=== PATIENT | female | born 1995 | race American Indian/Alaskan Native ===

== ENCOUNTER 2021-12-08 18:23 | Inpatient (IN) | payer SELFPAY ==
[2021-12-08] MEDS ORDERED: ETOMIDATE 20 MG/10 ML INJ IV ONE (19:44)
[2021-12-08] MEDS ORDERED: ROCURONIUM 50 MG/5 ML INJ IV ONE (19:45)
[2021-12-08] MEDS ORDERED: levETIRAcetam 1000 MG/NS 0.75% 1,000 MG/100 ML BAG IV ONE ×2 (19:57)
[2021-12-08] MEDS ORDERED: SODIUM CHLORIDE 0.9% 500 ML 500 ML IV ONE (19:57)
[2021-12-08] MEDS ORDERED: LORazepam 2 MG/ML VIAL IM PRN (19:57)
--- NOTE | 2021-12-08 19:58 | Emergency Department Report ---
ED General Adult HPI - General Chief complaint: Seizure Stated complaint: SEIZURE Time Seen by Provider: 12/08/21 19:56 Source: EMS (Verbal report received from emergency medical services. EMS documentation not available at time of chart dictation ), RN notes reviewed Mode of arrival: Stretcher Limitations: Altered Mental Status, Physical Limitation - History of Present Illness Initial comments: The patient was evaluated in the emergency department for symptoms described in the history of present illness. He/she was evaluated in the context of the global COVID-19 pandemic, which necessitated consideration that the patient might be at risk for infection with the virus that causes COVID-19. Institutional protocols and algorithms that pertain to the evaluation of patients at risk for COVID-19 are in a state of rapid change based on information released by regulatory bodies including the CDC and federal and state organizations. These policies and algorithms were followed during the patient's care in the emergency department. Please note that these policies, procedures and recommendations changed on a rapid basis. This is a 26-year-old female who is not known to myself previously, who was brought to the hospital by emergency medical services with an EMS articulated complaint of seizures and/or convulsions, and change in mental status. Her last known well time is not explicitly known. EMS reports the patient was flying back from out of the country, and reportedly had a few convulsive events. Her last known well time is not explicitly known. EMS reports that 911 was activated. EMS reports that upon their arrival, the patient had a normal Accu- Chek. They also reports that the patient had convulsions with them, which was terminated with benzodiazepines. They report the patient has been breathing spontaneously, and essentially unresponsive. In the emergency room, the patient is breathing spontaneously. She has a gag reflex. Supplemental oxygen is applied. The patient wakes up, and asks where she is. She then falls back to sleep. She is not able to describe the qualitative nature of her symptoms, exacerbating factors relieving factors or aggravating factors. No additional history is available at this time. It is not known what medical history the patient has, what medications he takes, or what her allergies are. She is not accompanied by friends or family at this time. The patient did indicate that she lives here in [place] -: unknown - Related Data Allergies Allergy/AdvReac Type Severity Reaction Status Date / Time Unable to Assess Allergy Unverified 12/08/21 19:51 ED Review of Systems ROS: Stated complaint: SEIZURE Other details as noted in HPI Comment: Unobtainable due to pts medical conditions ED Past Medical Hx - Social History Smoking Status: Unknown if ever smoked Substance Use Type: None ED Physical Exam - General Limitations: Altered Mental Status General appearance: lethargic (Patient is listless but arousable) - Head Head exam: Present: atraumatic, normocephalic - Eye Eye exam: Present: normal appearance, EOMI - ENT ENT exam: Present: normal exam, normal orophraynx, mucous membranes moist, normal external ear exam - Neck Neck exam: Present: normal inspection, full ROM. Absent: tenderness, men ingismus - Respiratory Respiratory exam: Present: rhonchi. Absent: respiratory distress, wheezes, rales, stridor - Cardiovascular Cardiovascular Exam: Present: regular rate, normal rhythm, normal heart sounds. Absent: bradycardia, tachycardia, irregular rhythm, systolic murmur, diastolic murmur, rubs, gallop - GI/Abdominal GI/Abdominal exam: Present: soft. Absent: distended, tenderness, guarding, rebound, rigid, pulsatile mass - Extremities Exam Extremities exam: Present: normal inspection, full ROM, other (2+ pulses noted in the bilateral upper and lower extremities. There is no palpable cord. negative Homans sign. Muscular compartments are soft. The pelvis is stable.). Absent: pedal edema, calf tenderness - Back Exam Back exam: Present: normal inspection, full ROM. Absent: tenderness, CVA tenderness (R), CVA tenderness (L), paraspinal tenderness, vertebral tenderness - Neurological Exam Neurological exam: Present: altered (Detailed neurologic examination not possible secondary to postictal state, benzodiazepines and altered mental status), other (There is no facial droop. Moving 4 extremities. Asking where she is.) - Psychiatric Psychiatric exam: Present: flat affect - Skin Skin exam: Present: warm, dry, intact, normal color. Absent: rash ED Course Vital Signs 12/08/21 19:32 Temperature 97 F L Pulse Rate 92 H Respiratory 18 Rate Blood Pressure 114/77 O2 Sat by Pulse 100 Oximetry - Reevaluation(s) Reevaluation #1: 12/08/21 20:41 Differential diagnosis, including but not limited to: Seizure, pseudoseizure, overdose, postictal state, electrolyte derangement, intracranial injury, pneumonia, UTI Assessment and plan 26-year-old female with report of multiple seizures. She is not seizing at this time. She is confused and asking where she is. She is breathing spontaneously. She is moving 4 extremities. Given voodoo of mental status, this does not meet definition criteria of status epilepticus. Place patient on monitor, supplemental oxygen, aspiration precautions, head of bed elevation, obtain noncontrast CT scan of the brain, and appropriate laboratory studies as well as EKG. Loaded with 2 g of Keppra empirically. Reassess after initial data points. Next 12/08/21 20:42 12/08/21 22:22 Patient is reassessed. No convulsive activity noted. She is breathing spontaneously. Laboratory studies nonactionable. Urinalysis pending. X-ray of the chest reviewed and appreciated by myself. Concerning for aspiration pneumonitis. Ceftriaxone and azithromycin ordered. UA and drug screen ordered. Admit patient to the hospitalist service for supportive care. Hospital physician, Dr. Morales to admit to [facility] ED Medical Decision Making - Lab Data Result diagrams: 12/08/21 21:06 12/08/21 21:06 Vital Signs 12/08/21 19:32 Temperature 97 F L Pulse Rate 92 H Respiratory 18 Rate Blood Pressure 114/77 O2 Sat by Pulse 100 Oximetry Lab Results 12/08/21 12/08/21 12/08/21 Range/Units 21:06 21:06 21:06 WBC 8.9 (4.5-11.0) K/mm3 RBC 4.21 (3.65-5.03) M/mm3 Hgb 13.3 (10.1-14.3) gm/dl Hct 38.4 (30.3-42.9) % MCV 91 (79-97) fl MCH 32 (28-32) pg MCHC 35 H (30-34) % RDW 13.3 (13.2-15.2) % Plt Count 382 (140-440) K/mm3 Lymph % (Auto) 22.1 (13.4-35.0) % [place] % (Auto) 3.5 (0.0-7.3) % Eos % (Auto) 0.3 (0.0-4.3) % Baso % (Auto) 0.6 (0.0-1.8) % Lymph # (Auto) 2.0 (1.2-5.4) K/mm3 [place] # (Auto) 0.3 (0.0-0.8) K/mm3 Eos # (Auto) 0.0 (0.0-0.4) K/mm3 Baso # (Auto) 0.1 (0.0-0.1) K/mm3 Seg Neutrophils % 73.5 H (40.0-70.0) % Seg Neutrophils # 6.5 (1.8-7.7) K/mm3 Sodium 138 (137-145) mmol/L Potassium 4.9 (3.6-5.0) mmol/L Chloride 105.7 (98-107) mmol/L Carbon Dioxide 21 L (22-30) mmol/L Anion Gap 16 mmol/L BUN 4 L (7-17) mg/dL Creatinine 0.7 (0.6-1.2) mg/dL Estimated GFR > 60 ml/min BUN/Creatinine Ratio 6 % Glucose 66 (65-100) mg/dL Calcium 9.3 (8.4-10.2) mg/dL Total Bilirubin 0.20 (0.1-1.2) mg/dL AST 23 (5-40) units/L ALT 7 (7-56) units/L Alkaline Phosphatase 82 (35-129) units/L Total Creatine Kinase 97 (30-135) units/L Total Protein 7.4 (6.3-8.2) g/dL Albumin 4.3 (3.9-5) g/dL Albumin/Globulin Ratio 1.4 % HCG, Quant < 2 (0-4) mIU/mL Salicylates (2.8-20.0) mg/dL Acetaminophen (10.0-30.0) ug/mL Phenytoin (10.0-20.0) ug/mL Valproic Acid (50-100) ug/mL [place] (0.0-1.2) mmol/L Plasma/Serum Alcohol (0-0.07) % 12/08/21 12/08/21 12/08/21 Range/Units 21:06 21:06 21:06 WBC (4.5-11.0) K/mm3 RBC (3.65-5.03) M/mm3 Hgb (10.1-14.3) gm/dl Hct (30.3-42.9) % MCV (79-97) fl MCH (28-32) pg MCHC (30-34) % RDW (13.2-15.2) % Plt Count (140-440) K/mm3 Lymph % (Auto) (13.4-35.0) % [place] % (Auto) (0.0-7.3) % Eos % (Auto) (0.0-4.3) % Baso % (Auto) (0.0-1.8) % Lymph # (Auto) (1.2-5.4) K/mm3 [place] # (Auto) (0.0-0.8) K/mm3 Eos # (Auto) (0.0-0.4) K/mm3 Baso # (Auto) (0.0-0.1) K/mm3 Seg Neutrophils % (40.0-70.0) % Seg Neutrophils # (1.8-7.7) K/mm3 Sodium (137-145) mmol/L Potassium (3.6-5.0) mmol/L Chloride (98-107) mmol/L Carbon Dioxide (22-30) mmol/L Anion Gap mmol/L BUN (7-17) mg/dL Creatinine (0.6-1.2) mg/dL Estimated GFR ml/min BUN/Creatinine Ratio % Glucose (65-100) mg/dL Calcium (8.4-10.2) mg/dL Total Bilirubin (0.1-1.2) mg/dL AST (5-40) units/L ALT (7-56) units/L Alkaline Phosphatase (35-129) units/L Total Creatine Kinase (30-135) units/L Total Protein (6.3-8.2) g/dL Albumin (3.9-5) g/dL Albumin/Globulin Ratio % HCG, Quant (0-4) mIU/mL Salicylates < 0.3 L (2.8-20.0) mg/dL Acetaminophen 5.0 L (10.0-30.0) ug/mL Phenytoin 0.8 L (10.0-20.0) ug/mL Valproic Acid < 2.8 L (50-100) ug/mL [place] 0.1 (0.0-1.2) mmol/L Plasma/Serum Alcohol < 0.01 (0-0.07) % - EKG Data -: EKG Interpreted by Hi EKG shows normal: sinus rhythm Rate: normal - EKG Data 12/08/21 20:45 There is no prior EKG available for comparison. The EKG is interpreted at 20: 42 Sinus rhythm, rate 93 bpm. Normal axis, normal P wave axis, left ventricular hypertrophy, QTC 4 7 ms, intervals within normal limits. This is not a STEMI. - Radiology Data Radiology results: pending, report reviewed, image reviewed CT head/brain wo con INDICATION: Seizure. TECHNIQUE: Routine CT head. All CT scans at this location are performed using CT dose reduction for ALARA by means of automated exposure control. COMPARISON: None. FINDINGS: Intracranial: Image quality is significantly degraded by streak artifact. There is hypoattenuation seen in the left occipital lobe which is thought to most likely be artifactual. Sifuentes-white matter differentiation is maintained. No intracranial hemorrhage. No extra axial collection. No hydrocephalus. No herniation. Sinuses: Paranasal sinuses and mastoid air cells are essentially clear. Orbits: Globes are intact. Calvarium: No acute fracture. IMPRESSION: 1. No definite abnormality. Image quality is degraded by artifact. Signer Name: Gregorio Spear MD Signed: 12/08/2021 7:50 PM Workstation Name: [id number] [facility] [address] [place] [address] XRay Report Signed Patient: JOSE BATISTA MR#: [id number] : 1995 Acct:[id number] Age/Sex: 26 / F ADM Date: 12/08/21 Loc: ED Attending Dr: Ordering Physician: MARIO CAMPOVERDE MD Date of Service: 12/08/21 Procedure(s): XR chest 1V ap Accession Number(s): [id number] cc: MARIO CAMPOVERDE MD Fluoro Time In Minutes: CHEST 1 VIEW 12/08/2021 9:23 PM INDICATION / CLINICAL INFORMATION: Multiple convulsions and hypoxia. COMPARISON: None available. FINDINGS: SUPPORT DEVICES: None. HEART / MEDIASTINUM: No significant abnormality. LUNGS / PLEURA: There are hazy airspace opacities in bilateral lung bases. No pneumothorax. ADDITIONAL FINDINGS: No significant additional findings. IMPRESSION: 1. Hazy airspace opacities in bilateral lung bases suggesting infectious process versus aspiration Signer Name: Chato Mckay DO Signed: 12/08/2021 10:27 PM Workstation Name: [id number] Transcribed By: MARCO A Dictated By: CHATO MCKAY DO Electronically Authenticated By: CHATO MCKAY DO Signed Date/Time: 12/08/212226 DD/ 26 Critical care attestation.: If time is entered above; I have spent that time in minutes in the direct care of this critically ill patient, excluding procedure time. ED Disposition Clinical Impression: Convulsions, Acute encephalopathy Disposition: ADMITTED INPATIENT Is pt being admited?: Yes Does the pt Need Aspirin: No Condition: Fair
--- NOTE | 2021-12-08 20:54 | Cat Scan Report ---
CT head/brain wo con INDICATION: Seizure. TECHNIQUE: Routine CT head. All CT scans at this location are performed using CT dose reduction for A MARISABEL by means of automated exposure control. COMPARISON: None. FINDINGS: Intracranial: Image quality is significantly degraded by streak artifact. There is hypoattenuation se en in the left occipital lobe which is thought to most likely be artifactual. Sifuentes-white matter diffe rentiation is maintained. No intracranial hemorrhage. No extra axial collection. No hydrocephalus. No herniation. Sinuses: Paranasal sinuses and mastoid air cells are essentially clear. Orbits: Globes are intact. Calvarium: No acute fracture. IMPRESSION: 1. No definite abnormality. Image quality is degraded by artifact. Signer Name: Gregorio Spear MD Signed: 12/08/2021 8:50 PM Workstation Name: [id number]
[2021-12-08 21:33] LABS: Basophils # (Auto) 0.1 K/mm3 (0.0-0.1); Basophils % (Auto) 0.6 % (0.0-1.8); Eosinophils % (Auto) 0.3 % (0.0-4.3); Hematocrit 38.4 % (30.3-42.9); Hemoglobin 13.3 gm/dl (10.1-14.3); Lymphocytes % (Auto) 22.1 % (13.4-35.0); Mean Corpuscular HGB Conc 35 % (30-34); Mean Corpuscular Volume 91 fl (79-97); Monocytes # (Auto) 0.3 K/mm3 (0.0-0.8); Monocytes % (Auto) 3.5 % (0.0-7.3); Platelet Count 382 K/mm3 (140-440); Red Blood Count 4.21 M/mm3 (3.65-5.03); Red Cell Distribution Width 13.3 % (13.2-15.2)
[2021-12-08 21:49] LABS: Alanine Aminotransferase 7 units/L (7-56); Albumin 4.3 g/dL (3.9-5); Blood Urea Nitrogen 4 mg/dL (7-17); Calcium 9.3 mg/dL (8.4-10.2); Hemolysis Index 36
[2021-12-08 21:55] LABS: BUN/Creatinine Ratio 6
[2021-12-08] MEDS ORDERED: cefTRIAXone/NS 1 GM/50 ML 1 GM/50 ML BAG IV ONE (22:21)
[2021-12-08] MEDS ORDERED: AZITHROMYCIN/NS 500 MG/250 ML 500 MG/250 ML BAG IV ONE (22:21)
--- NOTE | 2021-12-08 22:32 | XRay Report ---
CHEST 1 VIEW 12/08/2021 9:23 PM INDICATION / CLINICAL INFORMATION: Multiple convulsions and hypoxia. COMPARISON: None available. FINDINGS: SUPPORT DEVICES: None. HEART / MEDIASTINUM: No significant abnormality. LUNGS / PLEURA: There are hazy airspace opacities in bilateral lung bases. No pneumothorax. ADDITIONAL FINDINGS: No significant additional findings. IMPRESSION: 1. Hazy airspace opacities in bilateral lung bases suggesting infectious process versus aspiration Signer Name: Chato Cummings DO Signed: 12/08/2021 10:27 PM Workstation Name: [id number]
[2021-12-08] MEDS ORDERED: ACETAMINOPHEN 325 MG TAB PO PRN (22:45)
[2021-12-08] MEDS ORDERED: ONDANSETRON 4 MG/2 ML INJ IV PRN (22:45)
[2021-12-08] MEDS ORDERED: ALBUTEROL 2.5 MG/3 ML NEBU IH PRN (22:45)
[2021-12-08] MEDS ORDERED: MORPHINE 2 MG/1 ML INJ IV PRN (22:45)
--- NOTE | 2021-12-08 22:54 | History and Physical Report ---
History of Present Illness Date of examination: 12/08/21 Date of admission: 12/08/21 Chief complaint: Seizure Unresponsiveness History of present illness: 26-year-old female who is not known to myself previously, who was brought to the hospital by emergency medical services with an EMS articulated complaint of seizures and/or convulsions, and change in mental status. Her last known well time is not explicitly known. EMS reports the patient was [place] back from out of the country, and reportedly had a few convulsive events. Her last known well time is not explicitly known. EMS reports that 911 was activated. EMS reports that upon their arrival, the patient had a normal Accu-Chek. They also reports that the patient had convulsions with them, which was terminated with benzodiazepines. They report the patient has been breathing spontaneously, and essentially unresponsive. In the emergency room, the patient is breathing spontaneously. She has a gag reflex. Supplemental oxygen is applied. The patient wakes up, and asks where she is. She then falls back to sleep. She is not able to describe the qualitative nature of her symptoms, exacerbating factors relieving factors or aggravating factors. No additional history is available at this time. It is not known what medical history the patient has, what medications he takes, or what her allergies are. She is not accompanied by friends or family at this time. The patient did indicate that she lives here in [place] In the emergency room initial CT scan of the head shows no acute intracranial abnormality. Chest x-ray shows hazy airspace opacities in the bilateral lung bases suggestion of infectious process versus aspiration Past History Past Surgical History: No surgical history Social history: no significant social history Family history: no significant family history Medications and Allergies Allergies Allergy/AdvReac Type Severity Reaction Status Date / Time Unable to Assess Allergy Unverified 12/08/21 19:51 Active Meds: Active Medications Acetaminophen (Acetaminophen 325 Mg Tab) 650 mg PO Q4H PRN PRN Reason: Pain MILD(1-3)/Fever >100.5/BRITO Albuterol (Albuterol 2.5 Mg/3 Ml Nebu) 2.5 mg IH Q3HRT PRN PRN Reason: Shortness Of Breath Albuterol/Ipratropium (Ipratropium/Albuterol Sulfate 3 Ml Ampul.Neb) 1 ampul IH Q6HRT RIC Famotidine (Famotidine 20 Mg/2 Ml Inj) 20 mg IV BID RIC Azithromycin (Zithromax/Ns) 500 mg in 250 mls @ 250 mls/hr IV ONCE ONE; Protocol Stop: 12/08/21 23:20 Dextrose/Sodium Chloride (D5/0.45ns) 1,000 mls @ 125 mls/hr IV DIRECT RIC Ceftriaxone Sodium (Rocephin/Ns 2 Gm/100 Ml) 2 gm in 100 mls @ 200 mls/hr IV Q24H RIC; Protocol Azithromycin (Zithromax/Ns) 500 mg in 250 mls @ 250 mls/hr IV Q24H RIC Levetiracetam 500 mg/ Dextrose 105 mls @ 400 mls/hr IV Q12HR RIC Lorazepam (Lorazepam 2 Mg/Ml Vial) 2 mg IM Q4HR PRN PRN Reason: Agitation Morphine Sulfate (Morphine 2 Mg/1 Ml Inj) 2 mg IV Q4H PRN PRN Reason: Pain, Moderate (4-6) Morphine Sulfate (Morphine 4 Mg/1 Ml Inj) 4 mg IV Q4H PRN PRN Reason: Pain , Severe (7-10) Ondansetron HCl (Ondansetron 4 Mg/2 Ml Inj) 4 mg IV Q8H PRN PRN Reason: Nausea And Vomiting Sodium Chloride (Sodium Chloride 0.9% 10 Ml Flush Syringe) 10 ml IV BID RIC Sodium Chloride (Sodium Chloride 0.9% 10 Ml Flush Syringe) 10 ml IV PRN PRN PRN Reason: LINE FLUSH Review of Systems All systems: negative Constitutional: fatigue, weakness, malaise, lethargy, other (Unresponsiveness, seizure) Exam - Constitutional Vitals: Temp Pulse Resp BP Pulse Ox 97 F L 92 H 18 114/77 100 12/08/21 19:32 12/08/21 19:32 12/08/21 19:32 12/08/21 19:32 12/08/21 19:32 General appearance: Present: no acute distress, well-nourished - EENT Eyes: Present: PERRL ENT: hearing intact, clear oral mucosa - Neck Neck: Present: supple, normal ROM - Respiratory Respiratory effort: normal Respiratory: bilateral: CTA - Cardiovascular Heart Sounds: Present: S1 & S2. Absent: rub, click - Extremities Extremities: pulses symmetrical, No edema Peripheral Pulses: within normal limits - Abdominal General gastrointestinal: Present: soft, non-tender, non-distended, normal bowel sounds Female genitourinary: Present: normal - Integumentary Integumentary: Present: clear, warm, dry - Musculoskeletal Musculoskeletal: gait normal, strength equal bilaterally - Psychiatric Psychiatric: appropriate mood/affect, intact judgment & insight - Neurologic Neurologic: CNII-XII intact, moves all extremities Results - Labs CBC & Chem 7: 12/08/21 21:06 12/08/21 21:06 Labs: Laboratory Last Values WBC 8.9 K/mm3 (4.5-11.0) 12/08/21 21:06 RBC 4.21 M/mm3 (3.65-5.03) 12/08/21 21:06 Hgb 13.3 gm/dl (10.1-14.3) 12/08/21 21:06 Hct 38.4 % (30.3-42.9) 12/08/21 21:06 MCV 91 fl (79-97) 12/08/21 21:06 MCH 32 pg (28-32) 12/08/21 21:06 MCHC 35 % (30-34) H 12/08/21 21:06 RDW 13.3 % (13.2-15.2) 12/08/21 21:06 Plt Count 382 K/mm3 (140-440) 12/08/21 21:06 Lymph % (Auto) 22.1 % (13.4-35.0) 12/08/21 21:06 [place] % (Auto) 3.5 % (0.0-7.3) 12/08/21 21:06 Eos % (Auto) 0.3 % (0.0-4.3) 12/08/21 21:06 Baso % (Auto) 0.6 % (0.0-1.8) 12/08/21 21:06 Lymph # (Auto) 2.0 K/mm3 (1.2-5.4) 12/08/21 21:06 [place] # (Auto) 0.3 K/mm3 (0.0-0.8) 12/08/21 21:06 Eos # (Auto) 0.0 K/mm3 (0.0-0.4) 12/08/21 21:06 Baso # (Auto) 0.1 K/mm3 (0.0-0.1) 12/08/21 21:06 Seg Neutrophils % 73.5 % (40.0-70.0) H 12/08/21 21:06 Seg Neutrophils # 6.5 K/mm3 (1.8-7.7) 12/08/21 21:06 Sodium 138 mmol/L (137-145) 12/08/21 21:06 Potassium 4.9 mmol/L (3.6-5.0) 12/08/21 21:06 Chloride 105.7 mmol/L (98-107) 12/08/21 21:06 Carbon Dioxide 21 mmol/L (22-30) L 12/08/21 21:06 Anion Gap 16 mmol/L 12/08/21 21:06 BUN 4 mg/dL (7-17) L 12/08/21 21:06 Creatinine 0.7 mg/dL (0.6-1.2) 12/08/21 21:06 Estimated GFR > 60 ml/min 12/08/21 21:06 BUN/Creatinine Ratio 6 % 12/08/21 21:06 Glucose 66 mg/dL (65-100) 12/08/21 21:06 Calcium 9.3 mg/dL (8.4-10.2) 12/08/21 21:06 Total Bilirubin 0.20 mg/dL (0.1-1.2) 12/08/21 21:06 AST 23 units/L (5-40) 12/08/21 21:06 ALT 7 units/L (7-56) 12/08/21 21:06 Alkaline Phosphatase 82 units/L (35-129) 12/08/21 21:06 Total Creatine Kinase 97 units/L (30-135) 12/08/21 21:06 Total Protein 7.4 g/dL (6.3-8.2) 12/08/21 21:06 Albumin 4.3 g/dL (3.9-5) 12/08/21 21:06 Albumin/Globulin Ratio 1.4 % 12/08/21 21:06 HCG, Quant < 2 mIU/mL (0-4) 12/08/21 21:06 Salicylates < 0.3 mg/dL (2.8-20.0) L 12/08/21 21:06 Acetaminophen 5.0 ug/mL (10.0-30.0) L 12/08/21 21:06 Phenytoin 0.8 ug/mL (10.0-20.0) L 12/08/21 21:06 Valproic Acid < 2.8 ug/mL (50-100) L 12/08/21 21:06 [place] 0.1 mmol/L (0.0-1.2) 12/08/21 21:06 Plasma/Serum Alcohol < 0.01 % (0-0.07) 12/08/21 21:06 - Imaging and Cardiology Chest x-ray: report reviewed CT Scan - head: report reviewed Assessment and Plan VTE prophylaxis?: Mechanical Plan of care discussed with patient/family: Yes - Patient Problems (1) Acute metabolic encephalopathy Status: Acute Plan to address problem: With the patient to the medical telemetry. Oxygen by nasal cannula 3 L/min. D5 half-normal saline at the rate of 100 cc/h. Pepcid 20 mg IV every 12 hours. Recheck CBC BMP in the morning we will consult neurology for evaluation. EEG (2) Seizure Status: Acute Plan to address problem: Keppra up 500 mg IV every 12 hours. EEG. Neurology evaluation. Urine drug screen (3) Convulsions Status: Acute Plan to address problem: Keppra 500 mg IV every 12 hours. EEG. Will consult neurology for evaluation (4) DVT prophylaxis Status: Acute Plan to address problem: SCD for DVT prophylaxis. Pepcid 20 mg IV every 12 hours for GI prophylaxis. Patient is a full code
[2021-12-08] MEDS ORDERED: D5W/0.45% NACL 1,000 ML IV SCH (23:00)
[2021-12-09] MEDS ORDERED: IPRATROPIUM/ALBUTEROL SULFATE 3 ML AMPUL.NEB IH SCH (02:00)
[2021-12-09 07:17] LABS: Basophils % (Auto) 0.2 % (0.0-1.8); Eosinophils % (Auto) 0.1 % (0.0-4.3); Hematocrit 37.1 % (30.3-42.9); Hemoglobin 12.4 gm/dl (10.1-14.3); Lymphocytes # (Auto) 1.6 K/mm3 (1.2-5.4); Mean Corpuscular HGB Conc 34 % (30-34); Mean Corpuscular Volume 90 fl (79-97); Monocytes % (Auto) 5.7 % (0.0-7.3); Platelet Count 361 K/mm3 (140-440); Red Blood Count 4.13 M/mm3 (3.65-5.03); Red Cell Distribution Width 13.1 % (13.2-15.2)
[2021-12-09 07:43] LABS: Blood Urea Nitrogen 6 mg/dL (7-17); Calcium 8.8 mg/dL (8.4-10.2); Hemolysis Index 2
[2021-12-09 07:50] LABS: BUN/Creatinine Ratio 9
[2021-12-09] MEDS: MORPHINE 4 MG/1 ML INJ IV PRN ×2 (09:15→21:17)
[2021-12-09] MEDS ORDERED: POTASSIUM CHLORIDE ER 20 MEQ TAB PO NR (09:28)
[2021-12-09] MEDS: levETIRAcetam 500 MG in DEXTROSE 5% IN WATER 100 ML IV SCH ×2 (10:53→21:04)
[2021-12-09] MEDS: FAMOTIDINE 20 MG/2 ML INJ IV SCH ×2 (10:53→21:17)
--- NOTE | 2021-12-09 13:22 | Progress Note ---
Assessment and Plan Assessment and plan: History of present illness: 26-year-old female who is not known to myself previously, who was brought to the hospital by emergency medical services with an EMS articulated complaint of seizures and/or convulsions, and change in mental status. Her last known well time is not explicitly known. EMS reports the patient was [place] back from [place] of the country, and reportedly had a few convulsive events. Her last known well time is not explicitly known. EMS reports that 911 was activated. EMS reports that upon their arrival, the patient had a normal Accu-Chek. They also reports that the patient had convulsions with them, which was terminated with benzodiazepines. They report the patient has been breathing spontaneously, and essentially unresponsive. In the emergency room, the patient is breathing spontaneously. She has a gag reflex. Supplemental oxygen is applied. The patient wakes up, and asks where she is. She then falls back to sleep. She is not able to describe the qualitative nature of her symptoms, exacerbating factors relieving factors or aggravating factors. No additional history is available at this time. It is not known what medical history the patient has, what medications he takes, or what her allergies are. She is not accompanied by friends or family at this time. The patient did indicate that she lives here in [place] In the emergency room initial CT scan of the head shows no acute intracranial abnormality. Chest x-ray shows hazy airspace opacities in the bilateral lung bases suggestion of infectious process versus aspiration Admitted to telemetry bed for seizure. Assessment: #Seizure # Acute metabolic encephalopathy (improving) #Sepsis POA, tachycardic and leukocytosis 17.4K. #Aspiration pneumonia # Convulsions #Advance care planning Disease education conducted, care plan discussed, diagnoses discussed, prognosis discussed, patient is full code, patient acknowledges understanding and agree with care plan, discussed about patient clinical course and answered all questions to satisfaction. +30 minutes. +30 minutes. Plan: -Protecting airway, admitted to medical telemetry currently on room air, alert and oriented x4 however is very drowsy, currently on room air -Aspiration suspected during seizure episode as evidenced by radiographic evidence of bilateral patchy opacities and mild leukocytosis. However no fever Azithromycin/Rocephin IV. Procalcitonin ordered, can discontinue antibiotics if nonelevated -Metabolic panel only significant for leukocytosis 17.4 and hypokalemia 3.5. Potassium replaced. 20 mg IV every 12 hours. Recheck CBC BMP in the morning we will consult neurology for evaluation. EEG -Keppra up 500 mg IV every 12 hours. Patient admitted that her home medication is Keppra but could not respond or she has been compliant -EEG. -Neurology evaluation. -Urine drug screen pending Dispo: Patient is from out of town, currently resides in [facility]. We will continue to monitor for further seizure activity. Pending EEG and neurology evaluation. Continue Keppra at this time. Anticipate discharge in next 24 hours if lab testing unremarkable. History Interval history: Very drowsy on exam. Alert and oriented x4 however. Patient states that she does have a history of seizures in the past and currently taking Keppra. Due to the drowsiness of her presentation she was unable to answer all of my questions on my encounter. Hospitalist Physical - Physical exam Narrative exam: Physical Exam: VITAL SIGNS: Reviewed. GENERAL: The patient appears normally developed, Vital signs as documented. HEAD: No signs of head trauma. EYES: Pupils are equal. Extraocular motions intact. EARS: Hearing grossly intact. MOUTH: Oropharynx is normal. NECK: No adenopathy, no JVD. CHEST: Chest with clear breath sounds bilaterally. No wheezes, rales, or rhonchi. CARDIAC: Regular rate and rhythm. S1 and S2, without murmurs, gallops, or rubs. VASCULAR: No Edema. Peripheral pulses normal and equal in all extremities. ABDOMEN: Soft, non tender and non distended. No rebound or guarding, and no masses palpated. Bowel Sounds normal. MUSCULOSKELETAL: Good range of motion of all major joints. Extremities without clubbing, cyanosis or edema. NEUROLOGIC EXAM: Alert and oriented x 4 but very drowsy. no focal sensory or strength deficits. PSYCHIATRIC: Drowsy, mood normal. SKIN: detail exam as documented in skin assessment - Constitutional Vitals: Temp Pulse Resp BP Pulse Ox 97 F L 97 H 22 104/65 99 12/08/21 19:32 12/09/21 08:53 12/09/21 08:54 12/09/21 08:00 12/09/21 10:55 General appearance: Present: no acute distress, well-nourished Results - Labs CBC & Chem 7: 12/09/21 06:22 12/09/21 06:22 Labs: Laboratory Last Values WBC 17.4 K/mm3 (4.5-11.0) H 12/09/21 06:22 RBC 4.13 M/mm3 (3.65-5.03) 12/09/21 06:22 Hgb 12.4 gm/dl (10.1-14.3) 12/09/21 06:22 Hct 37.1 % (30.3-42.9) 12/09/21 06:22 MCV 90 fl (79-97) 12/09/21 06:22 MCH 30 pg (28-32) 12/09/21 06:22 MCHC 34 % (30-34) 12/09/21 06:22 RDW 13.1 % (13.2-15.2) L 12/09/21 06:22 Plt Count 361 K/mm3 (140-440) 12/09/21 06:22 Lymph % (Auto) 9.0 % (13.4-35.0) L 12/09/21 06:22 [place] % (Auto) 5.7 % (0.0-7.3) 12/09/21 06:22 Eos % (Auto) 0.1 % (0.0-4.3) 12/09/21 06:22 Baso % (Auto) 0.2 % (0.0-1.8) 12/09/21 06:22 Lymph # (Auto) 1.6 K/mm3 (1.2-5.4) 12/09/21 06:22 [place] # (Auto) 1.0 K/mm3 (0.0-0.8) H 12/09/21 06:22 Eos # (Auto) 0.0 K/mm3 (0.0-0.4) 12/09/21 06:22 Baso # (Auto) 0.0 K/mm3 (0.0-0.1) 12/09/21 06:22 Seg Neutrophils % 85.0 % (40.0-70.0) H 12/09/21 06:22 Seg Neutrophils # 14.8 K/mm3 (1.8-7.7) H 12/09/21 06:22 Sodium 141 mmol/L (137-145) 12/09/21 06:22 Potassium 3.5 mmol/L (3.6-5.0) L D 07/16/22 06:22 Chloride 108.0 mmol/L (98-107) H 12/09/21 06:22 Carbon Dioxide 23 mmol/L (22-30) 12/09/21 06:22 Anion Gap 14 mmol/L 12/09/21 06:22 BUN 6 mg/dL (7-17) L 12/09/21 06:22 Creatinine 0.7 mg/dL (0.6-1.2) 12/09/21 06:22 Estimated GFR > 60 ml/min 12/09/21 06:22 BUN/Creatinine Ratio 9 % 12/09/21 06:22 Glucose 80 mg/dL (65-100) 12/09/21 06:22 Calcium 8.8 mg/dL (8.4-10.2) 12/09/21 06:22 Total Bilirubin 0.20 mg/dL (0.1-1.2) 12/08/21 21:06 AST 23 units/L (5-40) 12/08/21 21:06 ALT 7 units/L (7-56) 12/08/21 21:06 Alkaline Phosphatase 82 units/L (35-129) 12/08/21 21:06 Total Creatine Kinase 97 units/L (30-135) 12/08/21 21:06 Total Protein 7.4 g/dL (6.3-8.2) 12/08/21 21:06 Albumin 4.3 g/dL (3.9-5) 12/08/21 21:06 Albumin/Globulin Ratio 1.4 % 12/08/21 21:06 HCG, Quant < 2 mIU/mL (0-4) 12/08/21 21:06 Salicylates < 0.3 mg/dL (2.8-20.0) L 12/08/21 21:06 Acetaminophen 5.0 ug/mL (10.0-30.0) L 12/08/21 21:06 Phenytoin 0.8 ug/mL (10.0-20.0) L 12/08/21 21:06 Valproic Acid < 2.8 ug/mL (50-100) L 12/08/21 21:06 [place] 0.1 mmol/L (0.0-1.2) 12/08/21 21:06 Plasma/Serum Alcohol < 0.01 % (0-0.07) 12/08/21 21:06 [place]/IV: Voiding Method Toilet Active Medications - Current Medications Current Medications: Generic Name Dose Route Start Last Admin Trade Name Freq PRN Reason Stop Dose Admin Acetaminophen 650 mg 12/08/21 22:45 Acetaminophen 325 Mg Tab PO Q4H PRN Pain MILD(1-3)/Fever >100.5/BRITO Albuterol 2.5 mg 12/08/21 22:45 Albuterol 2.5 Mg/3 Ml Nebu IH Q3HRT PRN Shortness Of Breath Famotidine 20 mg 12/09/21 10:00 12/09/21 10:53 Famotidine 20 Mg/2 Ml Inj IV 20 mg BID RIC Administration Dextrose/Sodium Chloride 1,000 mls @ 125 mls/hr 12/08/21 23:00 D5/0.45ns IV DIRECT RIC Ceftriaxone Sodium 2 gm in 100 mls @ 200 mls/hr 12/09/21 22:00 Rocephin/Ns 2 Gm/100 Ml IV Q24H RIC Protocol Azithromycin 500 mg in 250 mls @ 250 mls/hr 12/09/21 22:00 Zithromax/Ns IV Q24H RIC Levetiracetam 500 mg/ Dextrose 105 mls @ 400 mls/hr 12/09/21 10:00 12/09/21 10:53 IV 400 mls/hr Q12HR RIC Administration Lorazepam 2 mg 12/08/21 19:57 Lorazepam 2 Mg/Ml Vial IM Q4HR PRN Agitation Morphine Sulfate 2 mg 12/08/21 22:45 Morphine 2 Mg/1 Ml Inj IV Q4H PRN Pain, Moderate (4-6) Morphine Sulfate 4 mg 12/08/21 22:45 12/09/21 09:15 Morphine 4 Mg/1 Ml Inj IV 4 mg Q4H PRN Administration Pain , Severe (7-10) Ondansetron HCl 4 mg 12/08/21 22:45 Ondansetron 4 Mg/2 Ml Inj IV Q8H PRN Nausea And Vomiting Sodium Chloride 10 ml 12/09/21 10:00 12/09/21 10:53 Sodium Chloride 0.9% 10 Ml Flush Syringe IV 10 ml BID RCI Administration Sodium Chloride 10 ml 12/08/21 22:45 Sodium Chloride 0.9% 10 Ml Flush Syringe IV PRN PRN LINE FLUSH
[2021-12-09 18:22] LABS: Bilirubin,Urine NEG (Negative); Blood,Urine SM (Negative); Color,Urine Yellow (Yellow); Protein,Urine <15 mg/dL mg/dL (Negative); Urobilinogen,Urine < 2.0 mg/dL (<2.0)
[2021-12-09 18:29] LABS: Mucus,Urine FEW /HPF
[2021-12-09 18:45] LABS: Amphetamine Screen,Urine Negative; Methadone Screen,Urine Negative; Opiate Screen,Urine Negative
[2021-12-09 19:05] LABS: Benzodiazepines Screen,Urine Positive; Cannabinoid Screen,Urine Positive; Cocaine Screen,Urine Positive
[2021-12-09] MEDS ORDERED: cefTRIAXone/NS 2 GM/100 ML 2 GM/100 ML BAG IV SCH (22:00)
[2021-12-09] MEDS ORDERED: AZITHROMYCIN/NS 500 MG/250 ML 500 MG/250 ML BAG IV SCH (22:00)
[2021-12-10 06:24] LABS: Blood Urea Nitrogen 5 mg/dL (7-17); Hemolysis Index 86
[2021-12-10 06:38] LABS: BUN/Creatinine Ratio 8
[2021-12-10 08:15] VITALS: BP 112/77
--- NOTE | 2021-12-10 09:45 | Discharge Summary ---
Providers - Providers Date of Admission: 12/08/21 22:45 Date of discharge: 12/10/21 Attending physician: PAULA RIVAS MD 12/08/21 22:45 Consult to Physician [CONS] Routine Comment: Consulting Provider: LIYZ MENSAH Physician Instructions: Reason For Exam: Seizure Primary care physician: CHERRIE CONNELLY Hospitalization Reason for admission: Seizure Condition: Fair Hospital course: History of present illness: 26-year-old female who is not known to myself previously, who was brought to the hospital by emergency medical services with an EMS articulated complaint of seizures and/or convulsions, and change in mental status. Her last known well time is not explicitly known. EMS reports the patient was [place] from [place] the [place], and reportedly had a few convulsive events. Her last known well time is not explicitly known. EMS reports that 911 was activated. EMS reports that upon their arrival, the patient had a normal Accu-Chek. They also reports that the patient had convulsions with them, which was terminated with benzodiazepines. They report the patient has been breathing spontaneously, and essentially unresponsive. In the emergency room, the patient is breathing spontaneously. She has a gag reflex. Supplemental oxygen is applied. The patient wakes up, and asks where she is. She then falls back to sleep. She is not able to describe the qualitative nature of her symptoms, exacerbating factors relieving factors or aggravating factors. No additional history is available at this time. It is not known what medical history the patient has, what medications he takes, or what her allergies are. She is not accompanied by friends or family at this time. The patient did indicate that she lives here in [place] In the emergency room initial CT scan of the head shows no acute intracranial abnormality. Chest x-ray shows hazy airspace opacities in the bilateral lung bases suggestion of infectious process versus aspiration Admitted to telemetry bed for seizure. Hospital course: Patient admitted originally for seizure and metabolic encephalopathy with suspected aspiration pneumonitis. Seizure self terminated. Patient was started on Keppra IV. She does have a history of seizures per my encounter and is currently taking Keppra for this. UDS positive for benzodiazepines, cocaine, THC. Patient was counseled on abstinence of recreational drugs as these can lower the seizure threshold. It is believed that this was the inciting factor for her seizures. Patient currently on room air not requiring oxygen. She is afebrile. She can be discharged home with prescription for azithromycin and Keppra 500 mg p.o. twice daily. She was counseled on avoiding operating a motor vehicle until cleared by her primary care physician. She is advised to follow with her primary care physician as an outpatient as soon as possible. Assessment: #Seizure # Acute metabolic encephalopathy (improving) #Sepsis POA, tachycardic and leukocytosis 17.4K. #Aspiration pneumonia # Convulsions #polysubstance abuse - tox screen positive for benzo, cocaine, THC #Advance care planning Disease education conducted, care plan discussed, diagnoses discussed, prognosis discussed, patient is full code, patient acknowledges understanding and agree with care plan, discussed about patient clinical course and answered all questions to satisfaction. +30 minutes. +30 minutes. Disposition: HOME / SELF CARE / HOMELESS Final Discharge Diagnosis (Prints w/discharge instructions): Seizure, polysubstance abuse Time spent for discharge: 35 Core Measure Documentation - Palliative Care Palliative Care/ Comfort Measures: Not Applicable - Core Measures Any of the following diagnoses?: none Exam - Physical Exam Narrative exam: Physical Exam: VITAL SIGNS: Reviewed. GENERAL: The patient appears normally developed, Vital signs as documented. HEAD: No signs of head trauma. EYES: Pupils are equal. Extraocular motions intact. EARS: Hearing grossly intact. MOUTH: Oropharynx is normal. NECK: No adenopathy, no JVD. CHEST: Chest with clear breath sounds bilaterally. No wheezes, rales, or rhonchi. CARDIAC: Regular rate and rhythm. S1 and S2, without murmurs, gallops, or rubs. VASCULAR: No Edema. Peripheral pulses normal and equal in all extremities. ABDOMEN: Soft, non tender and non distended. No rebound or guarding, and no masses palpated. Bowel Sounds normal. MUSCULOSKELETAL: Good range of motion of all major joints. Extremities without clubbing, cyanosis or edema. NEUROLOGIC EXAM: Alert and oriented x 4, no longer drowsy. No focal sensory or strength deficits. PSYCHIATRIC: Drowsy, mood normal. SKIN: detail exam as documented in skin assessment - Constitutional Vitals: Temp Pulse Resp BP Pulse Ox 98.2 F 53 L 15 112/77 100 12/10/21 04:03 12/10/21 07:47 12/10/21 04:03 12/10/21 07:47 12/10/21 07:47 Plan Follow up with: CHERRIE CONNELLY MD [Primary Care Provider] - 7 Days Prescriptions: levETIRAcetam [Keppra TAB] 500 mg PO BID 30 Days #60 tablet Azithromycin [Zithromax TAB] 250 mg PO QDAY 3 Days #3 tablet
[2021-12-10] MEDS: FAMOTIDINE 20 MG/2 ML INJ IV SCH (10:13)
[2021-12-10] MEDS: levETIRAcetam 500 MG in DEXTROSE 5% IN WATER 100 ML IV SCH (10:13)
--- NOTE | 2021-12-10 15:13 | Electrocardiograph Report ---
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
--- NOTE | 2021-12-13 10:23 | Electrocardiograph Report ---
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
== END 2021-12-10 11:43 | disposition home or self-care (01) | DRG 871 ==
LOC: ED 18:23 → 4A 22:45
PROVIDERS: ADMIT Hospitalist; ATTEND Internal Medicine
DX: A41.9 Sepsis, unspecified organism (principal); G93.41 Metabolic encephalopathy; J69.0 Pneumonitis due to inhalation of food and vomit; G40.89 Other seizures
CPT/HCPCS: 36415; 70450; 71045; 80048; 80053; 80164; 80178; 80185; 80307; 80320; 81001; 82550; 84145; 84702; 85025; 93005; G0378; J3490; J7060; G0480; J0456; J0696; J1953; J2270; J7040